=== PATIENT | male | born 1965 | race Caucasian/White ===

== ENCOUNTER 2017-05-01 16:31 | Emergency (ER) | payer OTHER ==
[~2017-05-01] VITALS: Ht 175.3 cm; Wt 104.3 kg
[2017-05-01 17:10] VITALS: BP 163/88
--- NOTE | 2017-05-01 17:17 | ED.ADGEN ---
Past Medical History Past Medical History: High Cholesterol, Hypertension Past Surgical History: Lumbar Laminectomy Alcohol Use: None Drug Use: None Adult General Chief Complaint Chief Complaint: LACERATION/AVULSION HPI HPI Patient is a 51 year old man, history of hypertension, hypercholesterolemia, who presents to the emergency department with complaint of persistent bleeding from a laceration to the distal volar aspect of his right fifth digit. Patient states that he was at work, he was using a ratchet belt, which since that back and he was struck in the dorsal aspect of the proximal fifth digit of his right hand, states it feels "bruised", has had persistent bleeding since that time. Patient has a 1-1/4 cm laceration in this area. Patient is making pressure on the area, states that it was a fairly dirty environment, he states that his tetanus is up-to-date he last received vaccination about 2 years ago. He has not taken any medications prior to the ED. Denies any other injuries or complaints, is able to move the finger. Review of Systems Review of Systems Constitutional: Denies fever or chills. [] Eyes: Denies change in visual acuity. [] HENT: Denies nasal congestion or sore throat. [] Respiratory: Denies cough or shortness of breath. [] Cardiovascular: Denies chest pain or edema. [] GI: Denies abdominal pain, nausea, vomiting, bloody stools or diarrhea. [] : Denies dysuria. [] Musculoskeletal: Denies back pain, pain in the volar aspect of the distal right fifth digit status post laceration and contusion. Integument: Denies rash. [] Neurologic: Denies headache, focal weakness or sensory changes. [] Endocrine: Denies polyuria or polydipsia. [] Lymphatic: Denies swollen glands. [] Psychiatric: Denies depression or anxiety. [] Current Medications Current Medications Current Medications Medications (Trade) Dose Ordered Sig/Amy Start Time Stop Time Status Last Admin Dose Admin Cephalexin HCl (Keflex) 500 mg 1X ONCE 05/01/17 17:30 05/01/17 17:31 DC 05/01/17 17:30 500 MG Lidocaine/Sodium Bicarbonate (Buffered Lidocaine 1%) 20 ml 1X ONCE 05/01/17 17:30 05/01/17 17:31 DC 05/01/17 17:29 20 ML Naproxen (Naprosyn) 500 mg 1X ONCE 05/01/17 17:30 05/01/17 17:31 DC 05/01/17 17:30 500 MG Allergies Allergies Allergies Coded Allergies Type Severity Reaction Last Updated Verified No Known Drug Allergies 10/05/14 No Physical Exam Physical Exam Constitutional: Well developed, well nourished, no acute distress, non-toxic appearance. [] HENT: Normocephalic, atraumatic, bilateral external ears normal, oropharynx moist, no oral exudates, nose normal. [] Eyes: PERRLA, EOMI, conjunctiva normal, no discharge. [] Neck: Normal range of motion, no tenderness, supple, no stridor. [] Cardiovascular:Heart rate regular rhythm, no murmur, S1, S2, rubs or gallops. [] Lungs & Thorax: Bilateral breath sounds clear to auscultation, no wheezing, rhonchi, rales. [] Extremities: Patient with a 1.5 cm irregular linear laceration exposing subcutaneous tissue on the volar aspect of the distal aspect of the right fifth digit, persistent bleeding, stopped with pressure. Full range of motion of the finger. Cardinal motions are intact. No cyanosis, no clubbing, ROM intact, no edema. [] Neurologic: Alert and oriented X 3, normal motor function, normal sensory function, no focal deficits noted. [] Psychologic: Affect normal, judgement normal, mood normal. [] Current Patient Data Vital Signs Vital Signs Date Time Temp Pulse Resp B/P (MAP) Pulse Ox O2 Delivery O2 Flow Rate FiO2 05/01/17 17:10 98.6 88 16 97 Room Air 98.6 EKG EKG Not indicated. [] Radiology/Procedures Radiology/Procedures Right fingers: Three-view: Evidence of soft tissue swelling noted over the distal volar aspect of the right fifth digit, no evidence of foreign body or fracture. As interpreted by me. Course & Med Decision Making Course & Med Decision Making Pertinent Labs and Imaging studies reviewed. (See chart for details) Discussed with patient that due to the age of the injury, he is 5 hours out from onset, that there is increased risk of infection and complication. Patient has history of hypertension, and hyper-lipidemia, no other medical problems. Due to the persistent bleeding and gaping nature from the wound, closure is certainly required, patient understands risks of closure and benefits. Wound was copiously irrigated and wound edges approximated, as stated. Discussed with patient that this would be more loose approximation due to age of wound and concern for infection, patient voiced understanding and agreement. Debridement was required as stated, which was minor. Patient tolerated procedure without issue after a nerve block was applied. Sterile dressing applied, patient was also given Keflex in the emergency department, instructed to continue Keflex for 5 days for prophylaxis, and to return to the ED if any concerning symptoms develop. Follow-up with the ED or with his primary care provider in 8 days for suture removal. Patient voiced understanding and agreement with precautions, medications, and instructions. Discharged home in stable condition with his . Dragon Disclaimer Dragon Disclaimer This electronic medical record was generated, in whole or in part, using a voice recognition dictation system. Departure Impression: Primary Impression: Laceration Disposition: 01 HOME, SELF-CARE Condition: IMPROVED Scripts Cephalexin (KEFLEX) 500 Mg Capsule 500 MG PO QID, #20 CAP Prov: LUCIO CONNELL DO 05/01/17 Laceration Repair Lac Repair Indication: 1.5 cm irregular laceration into the subcutaneous tissue of the volar aspect of the distal fifth digits of the right hand Procedure: The patient was placed in the appropriate position and the wound was copiously irrigated with with 1 L of sterile saline under pressure. A nerve block was applied to the right fifth digit with good effect. Additional irrigation was applied, due to the significant swelling and related the wound, a small amount of debriding was required of the subcutaneous tissues to allow for approximation of the wound edges. A total of 5 simple interrupted sutures using 4-0 Ethilon were applied. The area was then dressed with Steri-Strips, and sterile gauze. Total repaired wound length: [TO 1.5 cm OLYA REPAIR LENGTH]. Other Items: [None The patient tolerated the procedure well Complications: [None]. LUCIO CONNELL DO May 01, 2017 17:17
[2017-05-01] MEDS ORDERED: LIDOCAINE 1% / SOD BICARB 8.4% 20 ML VIAL. IJ ONE (17:30)
[2017-05-01] MEDS ORDERED: CEPHALEXIN 250 MG CAPSULE. PO ONE (17:30)
[2017-05-01] MEDS ORDERED: NAPROXEN 500 MG TABLET PO ONE (17:30)
[2017-05-01] MEDS ORDERED: CEPH-264 PO (18:50)
--- NOTE | 2017-05-02 08:14 | RAD ---
THREE VIEWS right FINGER Clinical History: Laceration 5th digit palmar surface. Technique: AP view of the hand, as well as lateral and oblique collimated views of the little finger were obtained. Comparison: None. Findings: There is no acute fracture or dislocation. Joint spaces maintained. Mineralization is normal. There is soft tissue injury/laceration of the palmar surface of the fifth finger at the level of the DIP joint. There is a punctate radiodensity in the medial soft tissues at the level of the DIP joint that could be a foreign body. Finding is not seen on the lateral view. IMPRESSION: 1. No acute fracture. 2. Soft tissue findings as above.
== END 2017-05-01 19:09 | disposition home or self-care (01) ==
LOC: ER 16:31
DX: S61.216A Laceration without foreign body of right little finger without damage to nail, initial encounter (principal); E78.00 Pure hypercholesterolemia, unspecified; I10 Essential (primary) hypertension; W22.8XXA Striking against or struck by other objects, initial encounter; Y93.89 Activity, other specified; Y99.8 Other external cause status; Y92.89 Other specified places as the place of occurrence of the external cause
CPT/HCPCS: 12031; 73140; 99284-25

== ENCOUNTER 2017-11-02 16:21 | Emergency (ER) | payer OTHER ==
[2017-11-02] MEDS: HYDROcodone/APAP 5/325MG 1 TAB TABLET PO (17:11)
[2017-11-02] MEDS: ceFAZolin IM 1 GM VIAL IM (18:15)
== END 2017-11-02 18:35 | disposition home or self-care (01) ==
LOC: ER 16:21
DX: S62.661A Nondisplaced fracture of distal phalanx of left index finger, initial encounter for closed fracture (principal); E78.00 Pure hypercholesterolemia, unspecified; I10 Essential (primary) hypertension; W27.0XXA Contact with workbench tool, initial encounter; Y93.89 Activity, other specified; Y92.89 Other specified places as the place of occurrence of the external cause; Y99.8 Other external cause status
CPT/HCPCS: 29130; 73140; 96372; 99284-25; J0690